=== PATIENT | female | born 2000 | race African-American/Black ===

== ENCOUNTER 2024-08-20 13:49 | Outpatient (CLI) | payer OTHER | END 2024-08-20 13:50 | disposition home or self-care (01) | LOC: ULT 13:49 | PROVIDERS: ATTEND Family Medicine | DX: T83.32XA Displacement of intrauterine contraceptive device, initial encounter (principal); R93.89 Abnormal findings on diagnostic imaging of other specified body structures | CPT/HCPCS: 76856 ==

== ENCOUNTER 2024-09-09 06:51 | Outpatient (CLI) | payer MEDICAID ==
[2024-09-09 08:33] LABS: BHCG - Serum Negative (NEGATIVE); Pregs Control Background? CLEAR/WHITE (CLR/WHITE); Pregs Control Bar Appear? YES (CONTROL BAR)
[2024-09-09] MEDS ORDERED: Iopamidol 370 76% 100 ML VIAL ONE (09:37)
[2024-09-09] MEDS ORDERED: GASTROGRAFIN 30 ML BOT ONE (09:37)
== END 2024-09-09 06:52 | disposition home or self-care (01) ==
LOC: CT 06:51
PROVIDERS: ATTEND Nurse Practitioner Family
DX: Z32.02 Encounter for pregnancy test, result negative (principal); T83.32XD Displacement of intrauterine contraceptive device, subsequent encounter
CPT/HCPCS: 74177; 84703